=== PATIENT | male | born 1985 | race Caucasian/White ===

== ENCOUNTER 2020-06-24 10:24 | Emergency (ER) | payer OTHER ==
[~2020-06-24] VITALS: Ht 177.8 cm; Wt 111.1 kg
[2020-06-24 10:59] VITALS: BP 133/73
--- NOTE | 2020-06-24 11:57 | NUR ---
PT AMBULATED TO BED 8 WITH STEADY GAIT
--- NOTE | 2020-06-24 12:04 | NUR ---
34Y/O M PT C/C OF RIGHT SECOND FINGER LACERATION AFTER USING A WOOD SPLITTER AT HOME. PT REPORTS WAS ABLE TO SEE HIS BONE BUT CAN MOVE THE FINGER WITH AN INTERMITTENT PRESSURE PAIN OF 2/10 AND DENIES TAKING ANY PAIN RX FOR RELIEF. BILATERAL RADIAL PULSES 2+, BRISK CAP REFILL <2 SECS. PMH: DENIES RX: DENIES ALLX: SEASONAL ALLERGIES.
--- NOTE | 2020-06-24 12:42 | NUR ---
ERMD AT BEDSIDE
[2020-06-24] MEDS ORDERED: LIDOCAINE 2% 1000 MG/50 ML VIAL INJ ONE (12:45)
--- NOTE | 2020-06-24 12:52 | NUR ---
LAC SET UP AT BED SIDE ERMD NOTIFIED
--- NOTE | 2020-06-24 12:55 | NUR ---
TDAP CONSENT OBTAINED.
--- NOTE | 2020-06-24 13:05 | NUR ---
PT TAKEN TO RAD VIA WHEELCHAIR
--- NOTE | 2020-06-24 13:11 | NUR ---
PT RETURNED FROM RAD VIA WHEELCHAIR
--- NOTE | 2020-06-24 14:06 | NUR ---
PA AT BEDSIDE PERFORMING LAC REPAIR
[2020-06-24] MEDS ORDERED: CEPH500C16 PO (14:48)
[2020-06-24] MEDS ORDERED: BACI1PAC6 TP (14:48)
[2020-06-24] MEDS ORDERED: IBUP-2213 PO (14:48)
[2020-06-24] MEDS ORDERED: ACET-8386 PO (14:48)
--- NOTE | 2020-06-24 15:00 | NUR ---
PTS FINGER SPLINTED AND WOUND DRESSED
[2020-06-24 15:06] VITALS: BP 126/70
--- NOTE | 2020-06-24 15:06 | NUR ---
Patient discharged with v/s stable. Written and verbal after care instructions given and explained. Patient alert, oriented and verbalized understanding of instructions. Ambulatory with steady gait. All questions addressed prior to discharge. ID band removed. Patient advised to follow up with PMD. Rx of bacitracin and keflex given. Patient educated on indication of medication including possible reaction and side effects. Opportunity to ask questions provided and answered.
== END 2020-06-24 15:06 | disposition home or self-care (01) ==
LOC: MED 10:24
DX: S62.600B Fracture of unspecified phalanx of right index finger, initial encounter for open fracture (principal); S61.310A Laceration without foreign body of right index finger with damage to nail, initial encounter; W45.8XXA Other foreign body or object entering through skin, initial encounter; Y93.89 Activity, other specified; Y92.89 Other specified places as the place of occurrence of the external cause; Y99.8 Other external cause status
CPT/HCPCS: 12002; 73140; 90471; 90715; 99285; J2001